=== PATIENT | female | born 1995 | race Two or more races ===

== ENCOUNTER 2017-02-20 01:30 | Emergency (ER) | payer BC, MEDICAID ==
[~2017-02-20 01:30] MED LIST: CYMBALTA60 MG PO; IBUPROFEN800 M1 PO; LACRI-LUBE S.O3.5 G1 OP; NATURE'S TEARS15 ML OP; NO MEDICATIONS; NORCO 5/325 TAB1 TAB PO; PERCOCET 5-3251 EACH PO; PREDNISONE20 MG PO; PRENATAL VITAM1 EA12 PO; PROGESTERONE100 M1 EC; VITAMIN D400 UNI4 PO; ZOVIRAX200 MG PO; ZYRTEC10 M3 PO
== END 2017-02-20 02:10 ==
LOC: EDMED 01:30
DX: L50.9 Urticaria, unspecified (principal); F17.210 Nicotine dependence, cigarettes, uncomplicated